=== PATIENT | male | born 1985 | race Caucasian/White ===

== ENCOUNTER 2017-02-13 00:23 | Emergency (ER) | payer OTHER ==
[~2017-02-13] VITALS: Ht 177.8 cm; Wt 79.4 kg
[2017-02-13 00:38] VITALS: BP 110/75
[2017-02-13 00:50] VITALS: BP 110/75
--- NOTE | 2017-02-13 03:42 | Emergency Room Report ---
History of Present Illness General Chief Complaint: Medical Clearance Source: Patient Present Illness HPI 32-year-old male no significant past medical history brought by police after being found trespassing. Patient now complaining of slight back pain after he was handcuffed. No trauma. Patient ambulatory, no weakness or numbness of legs. No other complaints Allergies: Coded Allergies: No Known Allergies (Unverified , 02/13/17) Patient History Past Medical History: see triage record Past Surgical History: none Pertinent Family History: none Reviewed Nursing Documentation: PMH: Agreed, PSxH: Agreed Nursing Documentation-PMH Past Medical History: No Stated History Review of Systems All Other Systems: negative except mentioned in HPI Physical Exam Vital Signs Date Time Temp Pulse Resp B/P (MAP) Pulse Ox O2 Delivery O2 Flow Rate FiO2 02/13/17 00:26 98.1 72 16 110/75 98 Room Air Sp02 EP Interpretation: reviewed, normal General Appearance: normal inspection, well appearing, no apparent distress, alert, GCS 15, non-toxic Head: normocephalic, atraumatic Eyes: bilateral eye normal inspection, bilateral eye PERRL, bilateral eye EOMI ENT: normal ENT inspection, normal pharynx, normal voice, moist mucus membranes Neck: normal inspection, full range of motion, supple Respiratory: normal inspection, lungs clear, normal breath sounds, no respiratory distress, no retraction, no wheezing, speaking full sentences, chest symmetrical Cardiovascular #1: normal inspection, regular rate, rhythm, no edema, normal capillary refill Cardiovascular #2: 2+ radial (R), 2+ radial (L) Gastrointestinal: normal inspection, non tender, soft, non-distended, no guarding Genitourinary: no CVA tenderness Musculoskeletal: normal inspection, back normal, normal range of motion, non- tender Neurologic: normal inspection, alert, oriented x3, responsive, motor strength/ tone normal, sensory intact, normal gait, speech normal Psychiatric: normal inspection, judgement/insight normal, memory normal Skin: normal inspection, normal color, no rash, warm/dry, well hydrated, normal turgor Medical Decision Making Diagnostic Impression: Primary Impression: Back pain ER Course 32-year-old male p/w back pain DDX: likely musculoskeletal back pain vs. muscular strain Lumbar fracture is unlikely given patients age, no midline tenderness, no history of trauma, and that patient is ambulatory. Therefore, at this time no imaging is indicated Serious diagnoses such as cord compression, epidural abscess is unlikely in this patient given the clinical scenario and abscess of neurological symptoms or findings. Patient appears nontoxic. Plan: motrin ER course: Patient has remained nontoxic appearing and ambulatory in the ED. Disposition: Patient will be discharged to police custody Please note that this Emergency Department Report was dictated using IWTdevice engineer technology software, occasionally this can lead to erroneous entry secondary to interpretation by the dictation equipment. Last Vital Signs Date Time Temp Pulse Resp B/P (MAP) Pulse Ox O2 Delivery O2 Flow Rate FiO2 02/13/17 00:50 98.1 72 16 110/75 98 Room Air Disposition: D/C TO LAW ENFORCEMENT IN [facility]UST Condition: Improved Referrals: NOT CHOSEN IPA/,REFERRING (PCP) Departure Forms: Care Home Clearance Patient Instructions: Back Pain, Adult, [id number] Gunner Palomares M.D. Feb 13, 2017 03:42
== END 2017-02-13 00:50 ==
LOC: EMR 00:40
DX: M54.9 Dorsalgia, unspecified (principal)
CPT/HCPCS: 99283